=== PATIENT | female | born 1955 | race Caucasian/White ===

== ENCOUNTER → 2023-07-27 08:28 | Outpatient (REF) | payer MEDICARE, OTHER, SELFPAY | LOC: WDC 08:28 | PROVIDERS: ATTENDING PHYSICIAN Internal Medicine | DX: N64.4 Mastodynia (principal) | CPT/HCPCS: 77062; 77066 ==

== ENCOUNTER → 2024-09-17 06:30 | Outpatient (REF) | payer MEDICARE, OTHER, SELFPAY | LOC: RCS 06:30 | PROVIDERS: ATTENDING PHYSICIAN Internal Medicine Cardiovascular Disease; FAMILY PHYSICIAN Internal Medicine | DX: R06.09 Other forms of dyspnea (principal); I10 Essential (primary) hypertension | CPT/HCPCS: 93306 ==

== ENCOUNTER → 2024-09-19 06:30 | Outpatient (REF) | payer MEDICARE, OTHER, SELFPAY | LOC: RCS 06:30 | PROVIDERS: ATTENDING PHYSICIAN Internal Medicine Cardiovascular Disease; FAMILY PHYSICIAN Internal Medicine | DX: R06.09 Other forms of dyspnea (principal); I10 Essential (primary) hypertension | CPT/HCPCS: 78452; 93017; A9500 ==

== ENCOUNTER 2024-10-12 10:29 | Emergency (ER) | payer MEDICARE, OTHER, SELFPAY ==
[2024-10-12 10:52] VITALS: BP 191/113
[2024-10-12 11:14] LABS: % Eosinophils 3.8 % (0-6); % Immature Granulocytes 0.3 % (0-0.5); % Lymphocytes 39.9 % (20.5-51.1); % Monocytes 9.8 % (1.7-9.3); % Neutrophils 45.2 % (42.2-75.2); Absolute Basophils 0.1 10^3/uL (0-0.2); Absolute Eosinophils 0.2 10^3/uL (0-0.7); Absolute Lymphocytes 2.3 10^3/uL (1.2-3.4); Absolute Monocytes 0.6 10^3/uL (0.1-0.6); Absolute Neutrophils 2.6 10^3/uL (1.4-6.5); Hematocrit 41.7 % (37.0-47.0); Hemoglobin 14.9 g/dL (12.0-16.0); Mean Corp Hgb Conc. 35.7 g/dL (33.0-37.0); Mean Corpuscular Hgb 29.2 pg (27.0-31.0); Mean Corpuscular Volume 81.6 fL (81.0-99.0); Mean Platelet Volume 10.2 fL (7.4-10.4); Nucleated Red Blood Cells % 0 %; Platelet Count 218 10^3/uL (130-400); Red Blood Cell Count 5.11 10^6/uL (4.20-5.40); Red Cell Dist. Width 12.2 % (11.5-14.5); White Blood Cell Count 5.8 10^3/uL (4.8-10.8)
[2024-10-12 11:28] LABS: ALT (SGPT) 42 U/L (0-35); AST (SGOT) 35 U/L (14-36); Albumin 4.3 g/dl (3.5-5.0); Alkaline Phosphatase 72 U/L (38-126); Blood Urea Nitrogen 16 mg/dl (7-17); Calcium 9.8 mg/dl (8.4-10.2); Carbon Dioxide 29 mmol/L (22-30); Chloride 105 mmol/L (98-107); Glucose 117 mg/dl (70-99); Lipase 205 U/L (23-300); Potassium 4.2 mmol/L (3.5-5.1); Sodium 140 mmol/L (135-145); Total Bilirubin 0.7 mg/dl (0.2-1.3); Total Protein 7.2 g/dl (6.3-8.2); eGFR > 60.00
[2024-10-12 12:12] VITALS: BMI 35.6
[2024-10-12 12:47] LABS: Urine Albumin Negative (Neg - Trace); Urine Bilirubin Negative (Negative); Urine Character Clear (Clear); Urine Color Yellow; Urine Glucose Negative (Negative); Urine Ketone Negative (Negative); Urine Leukocyte 1+ (Negative); Urine Nitrite Negative (Negative); Urine Occult Blood Negative (Negative); Urine Specific Gravity 1.005 (<1.030); Urine Urobilinogen Negative (Neg - 1+)
--- NOTE | 2024-10-12 12:47 | ED.GENMED ---
History of Present Illness
General
Chief Complaint: Abdominal Pain
Source: patient
Time Seen by Provider: 10/12/24 12:02
History of Present Illness
History of Present Illness:
69-year-old female with past medical history of hypertension, hyperlipidemia and GERD presenting to the emergency department after being sent by the [place] [facility] for evaluation of upper abdominal pain/right upper quadrant abdominal pain
since Monday. Patient describes the pain to be relatively constant, intermittently sharp but sometimes just a mild pressure, somewhat relieved after eating for about an hour or 2 and then symptoms resolving, also notes some improvement with her
omeprazole and ymvt-ebc-kwhyoby antacid. Patient states the symptoms are associated with a little bit of urinary frequency but states she is not sure if this is related to the diuretic she takes and some mild nausea but otherwise no other symptoms.
Patient does report that about a month ago she had a stress test performed by cardiology which was unremarkable. She states that she will often get elevated blood pressures going to medical providers due to some stressful hospitalizations that she
has had. Social history was noted for wine once a month but otherwise unremarkable.
Past History
Past History
ED Past Medical History: GERD, HTN and Hypercholesterolemia
ED Past Surgical History: Gynecological, Orthopedic, Tonsilectomy and Other
Social History
Tobacco: Non-smoker
Alcohol: Occasional
Drug: None
Personal:
Living: with family
Review of Systems
Review of Systems
All Other Systems: ROS reviewed and negative except as documented in HPI and ROS
Phy Exam
Physical Exam
Physical Exam:
GENERAL: Alert , in no apparent distress, BP 215/105 at time of my exam
EYE: clear conjunctiva b/l
HEAD: NCAT
ENT: o/p clr, mmm.
CARDIAC: Regular rate and rhythm, no murmur .
LUNGS: Clear breath sounds bilaterally, no acute respiratory distress, no wheezes/rales/rhonchi
ABDOMEN: Soft, Tenderness within the epigastrium , no r/g, no cvat, negative Moralez sign, no tenderness at McBurney's point
NEUROLOGICAL: Alert and oriented
SKIN: Warm and dry, skin intact.
MUSCULOSKELETAL: No edema, well perfused.
PSYCH: Normal and appropriate interaction.
Scores
Heart Failure Risk
Heart Failure Risk Score: Not Applicable
Heart Score for Chest Pain Patients
STEMI patient?: Not applicable
Withdrawal Assessment of Alcohol
Withdrawal Assessment Completed?: Not applicable
Course
Orders/Labs/Results
Orders:
Orders
10/12/24 10:59
Complete Blood Count/With Diff Urgent
Comprehensive Metabolic Panel Urgent
Lipase Urgent
10/12/24 12:03
Electrocardiogram (*1) Urgent
Reason for Study: Abdominal Pain
EKG- Treatment ONCE
10/12/24 12:13
Troponin I Urgent
10/12/24 12:19
Urinalysis Reflex To Culture Urgent
Date Specimen was Collected: 10/12/24
Time Specimen was Collected: 12:18
Urine Microscopic Reflex Cult Urgent
Urine Culture Urgent
BRANDEE Source: U
Specimen Description:
Date Specimen was Collected: 10/12/24
Time Specimen was Collected: 12:18
10/12/24 12:36
Mag Hydrox/Al Hydrox/Simeth [Maalox] 30 ml Phenobarb/Hyoscy/Atropine/Scop [] 10 ml Viscous Lidocaine 2% [Xylocaine Viscous Cup] 10 ml PO NOW
US Abdomen Complete/Upper Urgent
Comment:
Reason For Exam: upper abd pain/RUQ pain
10/12/24 12:50
Phenobarb/Hyoscy/Atropine/Scop [] 10 ml .ROUTE .STK-MED ONE
10/12/24 12:51
Mag Hydrox/Al Hydrox/Simeth [Maalox] 30 ml .ROUTE .STK-MED ONE
Viscous Lidocaine 2% [Xylocaine Viscous Cup] 15 ml .ROUTE .STK-MED ONE
Abnormal Lab Results
10/12/24 10/12/24
10:59 12:19
Monocytes % 9.8 H %
(1.7-9.3)
Glucose 117 H mg/dl
(70-99)
ALT 42 H U/L
(0-35)
Leukocyte Esterase Rfl 1+ A
(Negative)
Urine Bacteria (Reflex) Few A
(Negative)
10/12/24 10:59
10/12/24 10:59
Vital Signs
Initial and Last Documented VS:
Initial Vital Signs
Temp Pulse Resp BP Pulse Ox
98.5 F 73 16 191/113 98
10/12/24 10:52 10/12/24 10:52 10/12/24 10:52 10/12/24 10:52 10/12/24 10:52
Last Documented Vital Signs
Temp Pulse Resp BP Pulse Ox
98.5 F 72 17 161/80 94
10/12/24 10:52 10/12/24 14:17 10/12/24 14:17 10/12/24 14:17 10/12/24 13:30
MDM/Problems Addressed
Differential Diagnosis Includes:
GERD, gastritis, duodenitis, peptic ulcer disease, biliary colic, pancreatitis, renal/ureteral colic, hypertensive urgency, less concern for urinary tract infection, less concern for atypical ACS presentation given patient did recently just have a
stress test which was reportedly unremarkable
MDM/Problems Addressed:
69-year-old female presenting to the ER for evaluation of upper abdominal pain since Monday, pain is somewhat relieved with food which would go against a biliary colic diagnosis potentially more likely part of a gastritis/duodenitis. Her
significant hypertension is noted, states that this is common for her whenever going to a hospital and that she was at her primary care provider earlier in the month and her blood pressure was normal at that time. Labs were ordered on arrival which
showed no leukocytosis and otherwise reassuring liver function test. Due to her elevated blood pressure I did add on an EKG and troponin to help rule out an atypical ACS presentation. Ultrasound of the abdomen ordered. Will treat symptoms with a
GI cocktail. Reassessment following
Chronic conditions affecting care: HTN
Acute Exacerbation and/or Progression of Chronic Illness: HTN
*Radiology
Radiology exam reviewed: radiology read reviewed
*Pulse Oximetry
Patient hypoxic: no
*EKG
Heart Rate: 75
Rate: normal
Rhythm: sinus
Ischemia: non-specific ST changes
*Chemical Worker Interpretation
Rate: normal
Rhythm: sinus
*Critical Care Note
Total Time (30-74mins, 75-104mins- exclusive of procedures): Not Applicable
Data Reviewed
Review of Other/Old Records Reveals: Records and Testing
Source: patient, records and spouse
Patient Management
Social determinants of health affecting care: Living situation and Strong social support
Escalation/DeEscalation of care consider admission/obs:
Patient's ultrasound shows hepatic steatosis but no cholelithiasis.. Patient's symptoms moderately improved with GI cocktail. Patient requesting to be discharged home. She already has an established GI provider and will contact them on Monday for
follow-up. Prescription for Carafate sent to patient's pharmacy. Stable for discharge home and aware of return precautions.
ED Attending Note
-
Portions of this chart may have been created with voice recognition software.� Occasional wrong word or��sound alike� substitutions may have occurred due to the inherent limitations of voice recognition software.
Discharge Plan
Departure
Patient Disposition: Home (Routine Discharge)
Date of Disposition: 10/12/24
Time of Disposition: 15:35
Patient with high blood pressure during this ER visit?: Yes
Discharge Problem:
Abdominal pain
Instructions: Abdominal Pain
Prescriptions:
New
sucralfate [Carafate] 100 mg/mL suspension
10 ml PO Q6H Qty: 1000 0RF
Referrals:
Amenta,Millicent L., DO [Family Provider, Internal Medicine]
Interventions
Interventions:
*Risk Screen - Suicide Last Done: 10/12/24 10:52
*General Assessment Last Done: 10/12/24 10:52
*Neglect/Abuse Screening Last Done: 10/12/24 10:52
*ED- Fall Risk Assessment Last Done: 10/12/24 10:52
*ED COVID-19 Vaccine History Last Done: 10/12/24 10:52
*Nursing Disposition Last Done: 10/12/24 16:06
IL-Jfijya-Yngqkborym Assessment Last Done: 10/12/24 11:30
Discharge Date and Time
Discharge Date/Time: 10/12/24 15:49
Print Language: MAORI
[2024-10-12] MEDS: MAALOX 50 PO (12:51)
[2024-10-12 12:54] LABS: Urine Bacteria Few (Negative); Urine Red Blood Cell 0-2 /HPF (0-2)
[2024-10-12 12:56] LABS: Troponin I < 0.012 ng/ml
[2024-10-12 14:17] VITALS: BP 161/80
== END 2024-10-12 15:49 | disposition home or self-care (01) ==
LOC: EMR 10:29
PROVIDERS: Physician Assistant Medical; EMERGENCY PHYSICIAN Emergency Medicine; FAMILY PHYSICIAN Internal Medicine
DX: R10.11 Right upper quadrant pain (principal); E78.00 Pure hypercholesterolemia, unspecified; I10 Essential (primary) hypertension
CPT/HCPCS: 99284; 76700; 80053; 81003; 81015; 83690; 84484; 85025; 87086; 93005

== ENCOUNTER 2024-11-13 09:26 | Emergency (ER) | payer MEDICARE, OTHER, SELFPAY ==
[2024-11-13 09:26] VITALS: BMI 34.5
[2024-11-13 09:35] VITALS: BP 172/85
--- NOTE | 2024-11-13 12:08 | ED.GENMED ---
History of Present Illness
General
Chief Complaint: Back Pain
Source: patient
Time Seen by Provider: 11/13/24 11:06
History of Present Illness
History of Present Illness:
69-year-old female with past medical history of hypertension, hyperlipidemia and GERD presenting to the emergency department for back pain that has been ongoing for the last few weeks, initially seen at [facility] where she had an x-ray
done which showed degenerative changes but due to's sharp severe pain while getting up off of the x-ray table was having a hard time obtaining CT scan. Patient was told that if she cannot complete the CT scan as an outpatient that the emergency
department could do something different for her which is why she presented to the ER today. Patient states the only time she has this sharp and severe pain is when she is laying flat and going to get up off the bed. She states that laying flat is
not the issue she is just very afraid of getting up and having that recurring sharp back pain again. She denies any fevers, bowel or urinary incontinence, saddle anesthesia, focal weakness or numbness, traumatic injuries. Patient did complete a
steroid taper with the orthopedist. She did not take anything for her pain today.
Past History
Past History
ED Past Medical History: GERD, HTN and Hypercholesterolemia
ED Past Surgical History: Gynecological, Orthopedic, Tonsilectomy and Other
Social History
Tobacco: Non-smoker
Alcohol: Occasional
Drug: None
Personal:
Living: with family
Review of Systems
Review of Systems
All Other Systems: ROS reviewed and negative except as documented in HPI and ROS
Phy Exam
Physical Exam
Physical Exam:
GENERAL: Alert , in no apparent distress but very anxious
EYE: conjunctiva clear
Head: Normocephalic atraumatic
NECK: Supple,
ENT: mmm.
LUNGS: no acute respiratory distress
NEUROLOGICAL: Alert and oriented, ambulatory, no focal neurologic deficits
SKIN: Warm and dry, skin intact.
MUSCULOSKELETAL: well perfused.
PSYCH: Normal and appropriate interaction.
Scores
Heart Failure Risk
Heart Failure Risk Score: Not Applicable
Heart Score for Chest Pain Patients
STEMI patient?: Not applicable
Withdrawal Assessment of Alcohol
Withdrawal Assessment Completed?: Not applicable
Course
Orders/Labs/Results
Orders:
Orders
11/13/24 12:33
CT Lumbar Spine W/o Iv Contras Urgent
Comment:
Reason For Exam: worsening lower back pain, sent by ortho
HYDROmorphone [Dilaudid] 0.5 mg IM NOW STA
Vital Signs
Initial and Last Documented VS:
Initial Vital Signs
Temp Pulse Resp BP Pulse Ox
98.7 F 75 20 172/85 96
11/13/24 09:35 11/13/24 09:35 11/13/24 09:35 11/13/24 09:35 11/13/24 09:35
Last Documented Vital Signs
Temp Pulse Resp BP Pulse Ox
98.7 F 74 18 164/99 99
11/13/24 09:35 11/13/24 14:20 11/13/24 14:20 11/13/24 14:20 11/13/24 14:20
MDM/Problems Addressed
Differential Diagnosis Includes:
Spinal stenosis
Disc herniation
Nerve impingement
No symptoms to suggest infectious etiology
No current symptoms to suggest cauda equina or neurogenic claudication
No urinary symptoms to suggest infectious etiology or renal/ureteral colic
MDM/Problems Addressed:
69-year-old female presenting to the ER for evaluation of lower back pain that has been present for the last few weeks, worse when attempting to get up after laying flat. Had x-ray showing degenerative changes throughout the lumbar spine,
orthopedist wished to obtain CT scan to rule out occult fracture. At this time patient is very hesitant to obtain imaging for fear of pain. I did offer her the CT scan and for her to give her pain medication here prior to the scan being done to
try and keep her as comfortable as possible. Patient unsure. Will come back into the room to further evaluate and determine if patient would like to proceed with imaging or just continue following up on an outpatient basis.
*Radiology
Radiology exam reviewed: radiology read reviewed
*Pulse Oximetry
SaO2: 96
Oxygen Mode of Delivery: Room air
Patient hypoxic: no
*Critical Care Note
Total Time (30-74mins, 75-104mins- exclusive of procedures): Not Applicable
Patient Management
Escalation/DeEscalation of care consider admission/obs:
CT scan shows a compression fracture of the T12 vertebral body. Other chronic findings noted. Patient was provided with a printout of CT scan report. Patient requesting information for orthopedics and pain management, unsure if she wants to go
back to [facility]. Information was provided for this. Patient is otherwise stable for discharge. Advised on return precautions
ED Attending Note
-
Portions of this chart may have been created with voice recognition software.� Occasional wrong word or��sound alike� substitutions may have occurred due to the inherent limitations of voice recognition software.
Discharge Plan
Departure
Patient Disposition: Home (Routine Discharge)
Date of Disposition: 11/13/24
Time of Disposition: 13:43
Patient with high blood pressure during this ER visit?: Yes
Discharge Problem:
T12 compression fracture, Lumbar spinal stenosis
Instructions: Vertebral compression fracture
Prescriptions:
No Action
sucralfate [Carafate] 100 mg/mL suspension
10 ml PO Q6H Qty: 1000 0RF
Referrals:
Millicent Luis DO [Family Provider, Internal Medicine]
Alin Orellana MD [Active, Anesthesiology]
Referral Note: Pain Management
Jaquan Nettles MD [Active, Orthopedics]
Referral Note: Call for appointment
Interventions
Interventions:
*Risk Screen - Suicide Last Done: 11/13/24 09:35
*General Assessment Last Done: 11/13/24 09:35
*Neglect/Abuse Screening Last Done: 11/13/24 09:35
*ED- Fall Risk Assessment Last Done: 11/13/24 11:10
*Nursing Disposition Last Done: 11/13/24 14:20
ED-Musculoskeletal Assessment Last Done: 11/13/24 11:10
Discharge Date and Time
Discharge Date/Time: 11/13/24 14:26
Print Language: NEPALI
[2024-11-13] MEDS: DILAUDID 0.5 MG IM (12:44)
[2024-11-13 14:20] VITALS: BP 164/99
== END 2024-11-13 14:26 | disposition home or self-care (01) ==
LOC: EMR 09:26
PROVIDERS: EMERGENCY PHYSICIAN Student in an Organized Health Care Education/Training Program; FAMILY PHYSICIAN Internal Medicine
DX: M48.061 Spinal stenosis, lumbar region without neurogenic claudication (principal); M48.54XA Collapsed vertebra, not elsewhere classified, thoracic region, initial encounter for fracture; I10 Essential (primary) hypertension; E78.00 Pure hypercholesterolemia, unspecified; K21.9 Gastro-esophageal reflux disease without esophagitis
CPT/HCPCS: 99284; 96372; 72131

== ENCOUNTER 2025-02-24 10:16 | Day surgery (SDC) | payer MEDICARE, OTHER, SELFPAY ==
[2025-02-24] VITALS (14 sets, daily range): BP systolic 135–197; BP diastolic 84–97; BMI 35.5
[2025-02-24] MEDS: LOW STRENGTH ASPIRIN 324 MG PO (12:17)
[2025-02-24] MEDS: LASIX 20 MG IV (14:06)
--- NOTE | 2025-02-24 17:07 | ITS.CL.CATH ---
Saw Straightener - Catheterization
Cardiac Catheterization
Procedure Report:
LEFT HEART CATHETERIZATION
Date of Procedure: February 24, 2025
Referring: Israel Steward
PROCEDURES:
1. Left heart catheterization, coronary angiogram.
2. Moderate sedation.
INDICATION: Progressive dyspnea on exertion with significantly elevated coronary calcium score
ACCESS: Right radial artery, 6Fr. sheath, under US guidance.
HEMODYNAMICS : (mmHg)
AO (s/d) : 138/75
LVEDP : 23
No significant gradient across the aortic valve to suggest aortic stenosis.
CORONARY FINDINGS
Dominance: Right
Left Main Trunk (LMT): Large caliber vessel that gives rise to the LAD and LCx branches and is free of angiographic disease.
Left Anterior Descending Artery (LAD): Large caliber vessel that gives off 3 small caliber major diagonal branches as it courses along the anterior inter-ventricular groove before wrapping around the cardiac apex. There mid LAD starting at the
level of D3 has long area of diffuse up to 75% stenosis. Distal to apical LAD has diffuse up to 90% stenosis. [id number] collaterals are noted. The diagonal branches are small caliber with D2 and D3 with 40- 50 to 60% ostial stenosis. D3 also
has a proximal 70% stenosis.
Left Circumflex Artery (LCx): Large caliber vessel that gives off 2 major obtuse marginal (OM) branches as it courses along the atrio-ventricular (AV) groove. OM 1 is a medium caliber vessel with long area of diffuse 70% stenosis. OM 2 is a
medium caliber vessel with a long area of 60 to 70% stenosis.
Right Coronary Artery (RCA): Large caliber dominant vessel that gives rise to the posterior descending artery (RPDA) and postero-lateral ventricular (RPLV) branches distally. Mid RCA has 100% chronic total occlusion with robust [id number]
collaterals.
SEDATION: 27 minutes of procedural sedation was utilized. IV Midazolam and IV Fentanyl were administered. An independent medical certification specialist was present to assist with and help manage the patient's level of consciousness and physiologic status.
RADIATION SUMMARY: Fluoro Time (min): 4.2 Dose (mGy): 503.2, DAP (Gy.cm2) : 30.6
Closure Device: There were no immediate intra-procedural complications. The sheath was pulled in the manager lab and a vascular-band applied to the right wrist for radial artery hemostasis using the patent hemostasis technique.
CONCLUSIONS
1. Significant multivessel coronary artery disease.
2. LVEDP elevated at 23 mmHg
RECOMMENDATIONS
1. Wean radial band per protocol. Monitor right hand perfusion and for bleeding from the radial site following removal of the vascular-band following trans-radial access.
2. Continue aggressive medical therapy and risk factor modification for secondary CAD prevention.
3. Hydrate with normal saline to mitigate the risk of contrast-induced acute kidney injury.
4. CT surgery consult to pursue a heart team approach to discuss optimal management of multivessel coronary artery disease including options of medical therapy only versus PCI versus coronary artery bypass grafting however I am concerned about LAD
target.
Shania Gentile MD, FACC, [facility]
Copy to: Israel Steward
== END 2025-02-24 16:05 | disposition home or self-care (01) ==
LOC: CATH 10:16
PROVIDERS: ATTENDING PHYSICIAN Internal Medicine Interventional Cardiology; FAMILY PHYSICIAN Internal Medicine; OTHER PHYSICIAN Internal Medicine Cardiovascular Disease
DX: I25.10 Atherosclerotic heart disease of native coronary artery without angina pectoris (principal); R06.09 Other forms of dyspnea; Z79.899 Other long term (current) drug therapy; I10 Essential (primary) hypertension
CPT/HCPCS: 99152; 99153; 93458; C1769; C1894; Q9967

== ENCOUNTER 2025-03-10 04:48 | Inpatient (IN) | payer MEDICARE, OTHER, SELFPAY ==
[2025-03-05 08:30] VITALS: BMI 34.7
[2025-03-05 08:56] LABS: Hematocrit 42.9 % (37.0-47.0); Hemoglobin 14.3 g/dL (12.0-16.0); Mean Corp Hgb Conc. 33.3 g/dL (33.0-37.0); Mean Corpuscular Volume 84.1 fL (81.0-99.0); Nucleated Red Blood Cells % 0 %; Platelet Count 234 10^3/uL (130-400); Red Cell Dist. Width 12.4 % (11.5-14.5)
[2025-03-05 09:03] LABS: INR 0.95; PT 13.2 Sec (11.4-14.6)
[2025-03-05 09:17] LABS: Urine Character Clear (Clear)
[2025-03-05 09:23] LABS: ALT (SGPT) 31 U/L (0-35); AST (SGOT) 23 U/L (14-36); Albumin 4.4 g/dl (3.5-5.0); Alkaline Phosphatase 66 U/L (38-126); Blood Urea Nitrogen 17 mg/dl (7-17); Calcium 9.6 mg/dl (8.4-10.2); Carbon Dioxide 30 mmol/L (22-30); Chloride 100 mmol/L (98-107); Estimated Creatinine Clearance 88 ml/min; Glucose 117 mg/dl (70-99); Potassium 4.2 mmol/L (3.5-5.1); Sodium 137 mmol/L (135-145); Total Protein 7.1 g/dl (6.3-8.2); eGFR > 60.00
[2025-03-05 09:31] LABS: Urine Squamous Cell >30 /LPF (Few)
[2025-03-05 09:32] LABS: Urine Red Blood Cell 0-2 /HPF (0-2)
[2025-03-05 09:33] LABS: Urine White Cell 26-30 /HPF (0-5)
[2025-03-05 09:52] LABS: Glycohemoglobin (HgbA1c) 5.9 % (4.0-5.9)
--- NOTE | 2025-03-05 12:45 | CM ---
spoke to pt in PAT's we disucssed preop CABG teaching including sternal and driving restrictions. she is prev indep, does state she has bad juli pain d/t healing compression fx. she lives with her husb in a 2 story home with 3 steps to enter. she
denies any dme's. she has the cardiac surgery educ book, soap and instructions. she is agreeable toa f/u visit fro the ct transitional care nurse after dc. plan isf or cabg 03/10, cm role explained and michelle questions answered.
[2025-03-09 06:00] VITALS: BMI 33.9
[2025-03-10] VITALS (11 sets, daily range): BP systolic 84–183; BP diastolic 56–112; PULSE 2–83; BMI 33.9
[2025-03-10] MEDS: PROTONIX 40 MG PO (05:40)
[2025-03-10] MEDS: MAGNESIUM OXIDE 400 MG PO (05:41)
[2025-03-10] MEDS: LOPRESSOR 25 MG PO (05:41)
[2025-03-10] MEDS: BACTROBAN 2% OINTMENT 1 APPLIC NASAL ×2 (05:45→20:08)
--- NOTE | 2025-03-10 05:53 | PTCARENOTE ---
patient arrived for SDA CABG, Alert and oriented, patient clipped and changed for surgery new linens and gown. Patient stated they have an allergy to prep wash Chlorhexidine and Betadine and wipes and was told to wash with normal soap and water by
surgeons office. No prep wipes used this morning. Patient had back pain at base line and need assistance moving in and out of bed. Preop medications and ABO screening sent. oriented to unit. admission questions and med rec completed. NPO since
1999 night prior to arrival.
--- NOTE | 2025-03-10 06:36 | W.CVOR.SURPR ---
CVOR Surgeon Immed Pre Op
-
I have examined this patient prior to performance of the scheduled procedure.
The patient's condition is unchanged from the time of the dictated/written History and
Physical and the patient is able to undergo the scheduled procedure.
Note- patient has reaction to both Betadine and Chlorhexidine. Reaction with previous use of each.
[2025-03-10 07:47] LABS: Urine Character Clear (Clear)
[2025-03-10 07:55] LABS: ACT+ - POC 112 Seconds (82-134)
[2025-03-10 07:57] LABS: Urine Squamous Cell >30 /LPF (Few)
[2025-03-10 09:47] LABS: ACT+ - POC 891 Seconds (82-134)
[2025-03-10 10:05] LABS: B.E. - POC 2.0 mmol/L; Glucose - POC 131 mg/dl (70-99); HCO3 - POC 26 mmol/L (21-28); Hematocrit - POC 39 % PCV (37-47); Hemodilution- POC No; Hemoglobin Calculated - POC 13.1; Ionized Calcium - POC 1.20 mmol/L (1.15-1.33); Lactate - POC 1.21 mmol/L (0.36-0.75); O2 Saturation %Calculated-POC 99.6 % (94-98); PCO2 - POC 39 mmHg (35-48); PO2 - POC 166 mmHg (83-108); Potassium - POC 3.7 mmol/L (3.5-5.1); Sodium - POC 137 mmol/L (136-145); Specimen Type - POC Arterial; pH - POC 7.44 (7.35-7.45)
[2025-03-10 10:16] LABS: ACT+ - POC 599 Seconds (82-134)
[2025-03-10 10:33] LABS: B.E. - POC 6.0 mmol/L; Glucose - POC 151 mg/dl (70-99); HCO3 - POC 30 mmol/L (21-28); Hematocrit - POC 26 % PCV (37-47); Hemodilution- POC Yes; Hemoglobin Calculated - POC 8.8; Ionized Calcium - POC 0.98 mmol/L (1.15-1.33); Lactate - POC 1.55 mmol/L (0.36-0.75); O2 Saturation %Calculated-POC 100.0 % (94-98); PCO2 - POC 38 mmHg (35-48); PO2 - POC 485 mmHg (83-108); Potassium - POC 4.6 mmol/L (3.5-5.1); Sodium - POC 136 mmol/L (136-145); Specimen Type - POC Arterial; pH - POC 7.50 (7.35-7.45)
[2025-03-10 10:42] LABS: ACT+ - POC 513 Seconds (82-134)
[2025-03-10 11:00] LABS: B.E. - POC 3.8 mmol/L; Glucose - POC 153 mg/dl (70-99); HCO3 - POC 27 mmol/L (21-28); Hematocrit - POC 27 % PCV (37-47); Hemodilution- POC Yes; Hemoglobin Calculated - POC 9.3; Ionized Calcium - POC 1.05 mmol/L (1.15-1.33); Lactate - POC 1.93 mmol/L (0.36-0.75); O2 Saturation %Calculated-POC 99.8 % (94-98); PCO2 - POC 37 mmHg (35-48); PO2 - POC 223 mmHg (83-108); Potassium - POC 4.4 mmol/L (3.5-5.1); Sodium - POC 137 mmol/L (136-145); Specimen Type - POC Arterial; pH - POC 7.48 (7.35-7.45)
--- NOTE | 2025-03-10 11:04 | CM ---
pt in OR today, cm following
[2025-03-10 11:08] LABS: ACT+ - POC 479 Seconds (82-134)
[2025-03-10 11:24] LABS: B.E. - POC 2.4 mmol/L; Glucose - POC 152 mg/dl (70-99); HCO3 - POC 27 mmol/L (21-28); Hematocrit - POC 29 % PCV (37-47); Hemodilution- POC Yes; Hemoglobin Calculated - POC 10.0; Ionized Calcium - POC 1.06 mmol/L (1.15-1.33); Lactate - POC 2.18 mmol/L (0.36-0.75); O2 Saturation %Calculated-POC 99.8 % (94-98); PCO2 - POC 42 mmHg (35-48); PO2 - POC 223 mmHg (83-108); Potassium - POC 4.3 mmol/L (3.5-5.1); Sodium - POC 136 mmol/L (136-145); Specimen Type - POC Arterial; pH - POC 7.42 (7.35-7.45)
[2025-03-10 11:36] LABS: ACT+ - POC 623 Seconds (82-134)
[2025-03-10 11:51] LABS: B.E. - POC 2.9 mmol/L; Glucose - POC 158 mg/dl (70-99); HCO3 - POC 28 mmol/L (21-28); Hematocrit - POC 31 % PCV (37-47); Hemodilution- POC Yes; Hemoglobin Calculated - POC 10.4; Ionized Calcium - POC 1.10 mmol/L (1.15-1.33); Lactate - POC 2.36 mmol/L (0.36-0.75); O2 Saturation %Calculated-POC 99.8 % (94-98); PCO2 - POC 42 mmHg (35-48); PO2 - POC 221 mmHg (83-108); Potassium - POC 4.0 mmol/L (3.5-5.1); Sodium - POC 140 mmol/L (136-145); Specimen Type - POC Arterial; pH - POC 7.43 (7.35-7.45)
[2025-03-10 12:02] LABS: ACT+ - POC 549 Seconds (82-134)
[2025-03-10 12:39] LABS: B.E. - POC 1.5 mmol/L; Glucose - POC 158 mg/dl (70-99); HCO3 - POC 27 mmol/L (21-28); Hematocrit - POC 30 % PCV (37-47); Hemodilution- POC Yes; Hemoglobin Calculated - POC 10.2; Ionized Calcium - POC 1.08 mmol/L (1.15-1.33); Lactate - POC 2.98 mmol/L (0.36-0.75); O2 Saturation %Calculated-POC 99.9 % (94-98); PCO2 - POC 45 mmHg (35-48); PO2 - POC 268 mmHg (83-108); Potassium - POC 4.1 mmol/L (3.5-5.1); Sodium - POC 140 mmol/L (136-145); Specimen Type - POC Arterial; pH - POC 7.38 (7.35-7.45)
[2025-03-10 12:44] LABS: ACT+ - POC 137 Seconds (82-134)
[2025-03-10 14:07] LABS: Glucose - Point of Care 152 mg/dl (70-99)
--- NOTE | 2025-03-10 14:11 | W.PN.CT.SURG ---
CT Surgery Operative Note
-
CARDIAC SURGERY OPERATIVE REPORT
Preoperative Diagnosis: Multivessel Coronary Artery Disease with symptoms
Postoperative Diagnosis: Same
Procedure(s) Performed:
1. Standard Sternotomy with Aortic and Right Atrial Cannulation
2. Internal Mammary Artery Harvesting, Left
3. Coronary artery bypass grafting x 4 (In situ BOWER to LAD, Ao to RSVG to distal RCA, Ao to RSVG to OM1, vein putnam to RSVG to D2)
4. Endoscopic vein harvesting of R saphenous vein
5. Transesophageal echocardiography
6. Placement of Temporary Ventricular Pacing Wires
7. Left atrial appendage ligation with 40 mm AtriClip device
Date of Surgery: 03/10/2025
Comorbidities:
1. Hypertension
2. Fibromyalgia
Attending Surgeon: Elsy Smart MD, MPH
Assistants: Helen Billings PA-C (present and necessary to medical claims assistant, endoscopic vein harvest, retraction, suction, exposure, suture management, and wound closure under my direction)
Anesthesiology: Michael Morris MD and Riya Sloan CRNA
Scrub and Circulating RNs: Ethel Otoole RN, Martha Salazar RN
Field Pipelines Supervisor: Nahum Maxwell CCP
Anesthesia: GETA
EBL: per perfusion records
Products: None
CPB Time: 150 minutes
Aortic Cross Clamp Time: 112 minutes
Indication(s) for Procedures: 69-year-old female with coronary artery disease, significant in all of her vessels and ongoing worsening symptoms of shortness of breath and fatigue.
Conduit(s) Quality:
BOWER -excellent caliber and size with great flow
RSVG -acceptable quality lumen size is fairly small but was free of sclerosis or varicosities
Target(s) Quality:
RCA -I was able to find what looked like PDA but was very small and diminutive, there was also an acute marginal that was decent in size but I opted to look for the distal RCA beyond the JET MAN which I did find. The artery was thickened but where I
was able to open it free of disease and easy to probe with a 1 mm probe. Flow with cardioplegia was 15 cc at 80 mmHg.
OM1 -I was able to see the distal OM 2 fairly small and very intramyocardial, I then also found OM1 which was also intramyocardial but substantially larger so I opted to open OM1. This was excellent lumen and easily probed with a 1.5 mm probe.
Flow with cardioplegia was 30 cc at 80 mmHg.
D2 -I can see various diagonal branches coming off of the LAD and shows the largest one which was D2. This vessel was also of good size and easily probed with a 1 mm probe.
LAD -hidden within the epicardial fat but could feel calcifications. I did find soft area in the distal LAD that we easily opened and found a good lumen that also probed with a 1 mm probe.
Findings: Preop CARLOS with normal function no significant regional wall motion abnormalities and mild MR, postop function at baseline without any new regional wall motion abnormalities. Patient stable on small amount of levo and normal sinus rhythm
without pacing. The BOWER was harvested in a skeletonized fashion. Following bypass grafting, test dose cardioplegia was given down each distal and confirmed patency and hemostasis. Each distal was probed both proximally and distally to confirm
disease and patency, respectively.
Description of Procedure: The patient was taken to the operating room. Their identity and procedure to be performed were verified and they were positioned supine on the operating table. Induction via general anesthesia with endotracheal intubation
was performed and central venous access and arterial monitoring were inserted. A preoperative transesophageal echocardiogram was performed to assess cardiac function and valvular function. The patient was then prepped and draped from chin to feet in
a sterile fashion. A preoperative time-out was performed with all members of the team present. A midline chest incision was performed along with median sternotomy. Simultaneous endoscopic access of the right lower extremity for saphenous vein
harvest was obtained along with administration of an initial 5,000 units of IV heparin. A RulTract sternal retractor was positioned to exposure the left internal mammary bed. The mammary was harvested and found to have good flow. A bulldog clamp was
applied to the distal end of the mammary after dividing it. It was wrapped in a papaverine soaked RayTec and replaced back into the left hemithorax. The RulTract was exchanged for a median sternal retractor. The innominate vein was isolated. Full
heparinization was given (a total of 45,000 units). We created a pericardial well. The aortic cannulation site was chosen where it was soft, pliable, and free of calcium. Cannulation was performed with an arterial cannula in the ascending aorta and
a triple-stage venous cannula through the right atrial appendage. The arterial cannula line had an appropriate bounce and correlating pressures with test dosing. Next, a root vent/antegrade cannula was inserted into the ascending aorta. The ACT was
confirmed to be over 400 and retrograde autologous priming was performed before commencing cardiopulmonary bypass. The pulmonary artery was away from the aorta to facilitate a clamp site. The aortic cross-clamp was placed after decreasing
the flow on the bypass and mean arterial pressure. A total of 1.2L initial dose of antegrade Del-Nido cardioplegia solution was given and planned for re-dosing every 75 minutes as necessary. There was rapid electro-mechanical arrest of the heart at
400 cc of cardioplegia. The left ventricle was observed for distention on echocardiogram and manual palpation. Cold slush was placed into a sponge and topically on the RV while we systemically cooled to 34 degrees centigrade.
First I position the heart to expose the left atrial appendage visually measured and chose a 40 mm atriclip device which we deployed at the base of our appendage to completely occlude. I positioned the heart to expose the distal right coronary. A
[place] blade was used to expose the coronary and perform the arteriotomy. Coronary Mcdonough scissors were used to enlarge the incision. The saphenous vein was trimmed and beveled to an appropriate size. The distal anastomosis was performed using 7-0
prolene in an end-to-side fashion. Antegrade cardioplegia was administered into the graft. Appropriate hemostasis and flow were confirmed. The graft was measured for length to the aorta and cut. A suitable site on the first obtuse marginal was
chosen. We dissected and prepared the distal target in a similar fashion. An end-to-side anastomosis was created with a 7-0 prolene. Antegrade cardioplegia was administered into the graft. Appropriate hemostasis and flow were confirmed. The graft
was measured for length to the aorta and cut. A suitable site on the second diagonal was chosen. We dissected and prepared the distal target in a similar fashion. An end-to-side anastomosis was created with a 7-0 prolene. Antegrade cardioplegia was
administered into the graft. Appropriate hemostasis and flow were confirmed. The graft was measured for length to the aorta which were just short of so we planned on anastomosing to the head of our saphenous vein graft to OM. A suitable target on
the distal left anterior descending was identified. We dissected and prepared the distal target in a similar fashion. We retrieved the BOWER from the chest and created a pericardial opening while being cognizant of the phrenic nerve to facilitate the
course of the mammary. The distal end of the mammary was prepped and beveled to size. We verified orientation and length of the JENN and found brisk flow. An end-to-side anastomosis was created with a 7-0 prolene. We temporarily released the bulldog
clamp on the mammary to inspect flow. Perfusion to the LAD territory was visualized and hemostasis was confirmed. The bull clamp was replaced on the mammary. The heart was filled and the root was distended with antegrade cardioplegia to make final
assessment of graft length and orientation. We created 2 aortotomies using a #11 blade then a 4.0mm aortic punch. The proximal anastomoses were created in an end-to-side fashion using 6-0 prolene. At the the same time, we re-warmed to 36.5 degrees
centigrade. The bulldog clamp was removed from the mammary. Temporary bipolar ventricular pacing wires were placed on the base of the right ventricle. The patient was placed in a Trendelenburg position and flows on bypass were lowered. The aortic
cross clamp was removed and flows were slowly brought back up. 2 bulldog clamps were placed on the saphenous vein graft to the OM in a place that our diagonal branch could easily reach. We opened this using an 11 blade and performed an end-to-side
anastomosis on the vein had. The bulldogs were released and we inspected for hemostasis. All bypass grafts were inspected and were free from kinking or twisting. The distal and proximal anastomoses appeared hemostatic. Once transesophageal
echocardiography appeared satisfactory for de-airing, the flows were temporarily lowered for root vent removal. After verifying acceptable parameters, we initiated weaning from cardiopulmonary bypass. Once we were off cardiopulmonary bypass, the
venous cannula was clamped and removed. A test dose of protamine was administered and the patient was monitored for any adverse reaction before resuming protamine. Once half of the protamine dose was delivered, pump suckers were turned off and the
systolic blood pressure was lowered for aortic decannulation. The aortic cannula was removed and pursestrings were tied down. All cannulation sites were oversewn with a 4-0 prolene. The mammary bed was inspected and hemostasis was confirmed. Once
the mediastinum was hemostatic, 19Fr Marc drains were placed in the left and right pleural cavities and two 24Fr Marc drains were placed within the pericardium. The sternum was approximated with 8 #7 single stainless steel wires. Fascia was
approximated with #1 vicryl suture. The subcutaneous, dermis and epidermis were closed in layers in a running fashion. The skin wound was cleansed and dressed.
All instrument, sponge, and needle counts were confirmed to be correct x 2 at the end of the operation. The patient was transferred to the cardiac intensive care unit in critical but stable condition.
I, Dr. Elsy Smart, was present, scrubbed for, and performed all critical elements of this procedure.
Elsy Smart MD, MPH
Cardiothoracic Surgeon
[facility] [address]
This operative dictation was created using the Mapp dictation system. Please excuse any grammatical, typographical, or 'sound alike' errors
[2025-03-10 14:18] LABS: B.E. -2.2 mmol/L; HCO3 24.2 mmol/L (21-28); O2 Saturation % 98.9 % (94-98); PCO2 47 mmHg (32-35); PO2 93 mmHg (83-108); Potassium 4.0 mMOL/L (3.5-5.1); Sodium 136 mMOL/L (136-145)
[2025-03-10 14:20] LABS: Hematocrit 36.0 % (37.0-47.0); Hemoglobin 12.0 g/dL (12.0-16.0); Platelet Count 225 10^3/uL (130-400)
[2025-03-10 14:28] LABS: INR 1.38; PT 17.3 Sec (11.4-14.6)
[2025-03-10 14:29] LABS: APTT 29.4 Sec (23.4-35.0)
[2025-03-10 14:34] LABS: Blood Urea Nitrogen 17 mg/dl (7-17); Estimated Creatinine Clearance 102 ml/min; Glucose 145 mg/dl (70-99); Magnesium 3.1 mg/dl (1.6-2.3)
[2025-03-10] MEDS: CALCIUM GLUCONATE 100 IV (14:39)
[2025-03-10 14:46] LABS: B.E. - POC -2.5 mmol/L; Glucose - POC 165 mg/dl (70-99); HCO3 - POC 22 mmol/L (21-28); Hematocrit - POC 28 % PCV (37-47); Hemodilution- POC Yes; Hemoglobin Calculated - POC 9.5; Ionized Calcium - POC 1.28 mmol/L (1.15-1.33); Lactate - POC 2.88 mmol/L (0.36-0.75); O2 Saturation %Calculated-POC 99.8 % (94-98); PCO2 - POC 37 mmHg (35-48); PO2 - POC 244 mmHg (83-108); POC Comment POST; Potassium - POC 3.1 mmol/L (3.5-5.1); Sodium - POC 139 mmol/L (136-145); Specimen Type - POC Arterial; pH - POC 7.38 (7.35-7.45)
[2025-03-10] MEDS: NSS 500 IV (14:48)
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
[2025-03-10 15:25] LABS: Glucose - Point of Care 144 mg/dl (70-99)
--- NOTE | 2025-03-10 16:00 | PTCARENOTE ---
Patient received from [facility] at 1400; Sedated and intubated; NSR rhythm on monitor; VSS; Epicardial v wire present with settings 30/10; DP and radial pulses present; Lungs diminished at bases; ETT size 8 positioned and secured at 22 cm R lip;
Ventilator settings SIMV 12/500/5 FiO2 40%; CTx4 to -20 cm wall suction draining bloody drainage - no air leak, tidaling, or crepitus noted; Hypoactive BS; Gurrola catheter in place draining clear, yellow urine; Sternal incision w/ scant amount of
bloody drainage, groin puncture site glued, approximated CDI, L leg or arm wrapped in BARON wrap - CDI; L radial A-line in place, slick present in RIJ Cordis all lines zeroed and leveled; PIVx1; Levo, insulin, precedex, infusing - see nursing
flowsheets for further details; see nursing documentation for further details.
[2025-03-10 16:08] LABS: Glucose - Point of Care 122 mg/dl (70-99)
--- NOTE | 2025-03-10 16:11 | RESPNOTE ---
ETT withdrawn to 22cm at the teeth per SPREADING MACHINE OPERATOR.
[2025-03-10] MEDS: VENTOLIN NEBULES 2.5 MG INH (16:12)
[2025-03-10 16:49] LABS: B.E. -0.4 mmol/L; HCO3 24.8 mmol/L (21-28); O2 Saturation % 96.5 % (94-98); PCO2 42 mmHg (32-35); PO2 77 mmHg (83-108)
[2025-03-10 17:02] LABS: Hematocrit 36.2 % (37.0-47.0); Hemoglobin 12.2 g/dL (12.0-16.0); Platelet Count 191 10^3/uL (130-400)
[2025-03-10] MEDS: DILAUDID 0.5 MG IV ×2 (17:05→20:53)
--- NOTE | 2025-03-10 17:32 | PTCARENOTE ---
PT placed on Cpap @ 1620, extubated @ 1700 AAOx4 w/ complaints of pain
[2025-03-10 17:48] LABS: Glucose - Point of Care 137 mg/dl (70-99)
[2025-03-10 18:25] LABS: Glucose - Point of Care 125 mg/dl (70-99)
[2025-03-10] MEDS: OFIRMEV 100 IV (19:08)
[2025-03-10] MEDS: NEURONTIN PO ×2 (19:29)
--- NOTE | 2025-03-10 19:55 | W.PN.CARDCBS ---
Today's Communication / Plan
-
Doing well immediately postop
Appreciate efforts of CT surgical team
We will continue to follow
Impression / Plan
-
Impression:
Status post CABG 03/10/2025 (BOWER to LAD, SVG to RCA, SVG to OM1 SVG off vein uptnam to D2, LAAL)
Hypertension
Hyperlipidemia
Fibromyalgia
Plan:
Doing well immediately postop
Appreciate efforts of CT surgery
We will continue to follow along
Progress Note - Stucco Worker
Subjective
Date of Service: March 10, 2025:
Seen immediately postop, just extubated,
Only drip present still he is insulin
Patient sedated,
Is verbalizing, not yet fully awake
Objective
Labs:
03/10/25 16:40
03/10/25 14:01
Labs
Hgb 12.2 g/dL (12.0-16.0) 03/10/25 16:40
Hct 36.2 % (37.0-47.0) L 03/10/25 16:40
Plt Count 191 10^3/uL (130-400) 03/10/25 16:40
PT 17.3 Sec (11.4-14.6) H 03/10/25 14:01
INR 1.38 03/10/25 14:01
APTT 29.4 Sec (23.4-35.0) 03/10/25 14:01
Sodium 137 mmol/L (135-145) 03/05/25 08:28
Potassium 4.2 mmol/L (3.5-5.1) 03/05/25 08:28
BUN 17 mg/dl (7-17) 03/10/25 14:01
Creatinine 0.6 mg/dL (0.6-1.0) 03/10/25 14:01
Glucose 145 mg/dl (70-99) H 03/10/25 14:01
Vital Signs and I&O:
Vital Signs
Temp Pulse Resp BP Pulse Ox
36.7 C 81 16 101/62 94
03/10/25 19:00 03/10/25 19:00 03/10/25 19:00 03/10/25 19:00 03/10/25 19:00
Vital Signs
Temp Pulse Resp BP Pulse Ox
36.7 C 81 16 101/62 94
03/10/25 19:00 03/10/25 19:00 03/10/25 19:00 03/10/25 19:00 03/10/25 19:00
Intake & Output
03/08/25 03/09/25 03/10/25 03/11/25
07:59 06:59 07:59 07:59
Intake Total 310 / 310
Output Total 890 / 890
Balance -580 / -580
Physical Exam
Physical Exam
Head and neck exam unremarkable, chest incision intact, right leg wrapped, lungs are clear, no murmurs no rubs, no edema
[2025-03-10] MEDS: CRESTOR 20 MG PO (20:04)
[2025-03-10] MEDS: SENOKOT 8.6 MG PO (20:04)
[2025-03-10] MEDS: LOW STRENGTH ASPIRIN 81 MG PO (20:05)
[2025-03-10] MEDS: ANCEF 5 IV (20:06)
[2025-03-10] MEDS: PACERONE PO (20:06)
[2025-03-10] MEDS: TYLENOL PO ×2 (20:07→22:40)
[2025-03-10 20:13] LABS: Glucose - Point of Care 126 mg/dl (70-99)
--- NOTE | 2025-03-10 20:27 | PTCARENOTE ---
Assumed care of patient 190, alert and oriented drowy. VSS, NSR rhythm on monitor; has epicardial v wire settings 30/10; DP and radial pulses present; Lungs diminished at bases; CTx4 to -20 cm wall suction draining bloody drainage - no air leak,
tidaling, or crepitus noted,+ BS, tolerating PO water, took oral medications without issue; Gurrola catheter in place draining clear, yellow urine; Sternal incision glued and CDI. groin puncture site glued, approximated CDI, L leg or arm wrapped in
BARON wrap - CDI; L radial A-line in place, slick present in RIJ Cordis all lines zeroed and leveled; PIVx1; Levo, insulin gtts infusing . - see nursing flowsheets for further details; see nursing documentation for further details.
[2025-03-10 20:51] LABS: B.E. 0.5 mmol/L; HCO3 25.4 mmol/L (21-28); O2 Saturation % 99.3 % (94-98); PCO2 41 mmHg (32-35); PO2 102 mmHg (83-108); Potassium 4.1 mMOL/L (3.5-5.1)
[2025-03-10] MEDS: FLEXERIL 5 MG PO (20:54)
[2025-03-10 21:52] LABS: Glucose - Point of Care 116 mg/dl (70-99)
[2025-03-10] MEDS: PACERONE 200 MG PO (21:56)
[2025-03-10] MEDS: NEURONTIN 100 MG PO (21:57)
[2025-03-10 22:54] LABS: Glucose - Point of Care 119 mg/dl (70-99)
--- NOTE | 2025-03-10 23:02 | PTCARENOTE ---
patient resting, follows commands, VSS, Levophed off, Insulin gtt per protocol, +pulses, 92 % on room air, has periods of apnea when asleep, CPAP order placed for overnight. Full bed bath completed with baby wash since allergy to CHG wipes. urine
output 50-60/hr.
[2025-03-10] MEDS: ROXICODONE 5 MG PO (23:20)
[2025-03-10 23:54] LABS: Glucose - Point of Care 99 mg/dl (70-99)
[2025-03-10] MEDS: CARDENE 200 IV (23:55)
[2025-03-11] VITALS (39 sets, daily range): BP systolic 88–140; BP diastolic 50–84; PULSE 90; O2SAT 90–94; BMI 35.6
[2025-03-11 00:59] LABS: Glucose - Point of Care 105 mg/dl (70-99)
[2025-03-11] MEDS: NITROGLYCERIN PREMIX 250 IV (01:30)
[2025-03-11 01:59] LABS: Glucose - Point of Care 130 mg/dl (70-99)
[2025-03-11] MEDS: ANCEF 5 IV ×2 (03:25→12:10)
[2025-03-11] MEDS: ROXICODONE 5 MG PO ×4 (03:25→19:31)
[2025-03-11 03:42] LABS: Hematocrit 33.8 % (37.0-47.0); Hemoglobin 11.7 g/dL (12.0-16.0); Mean Corp Hgb Conc. 34.6 g/dL (33.0-37.0); Mean Corpuscular Volume 84.7 fL (81.0-99.0); Platelet Count 224 10^3/uL (130-400); Red Cell Dist. Width 12.7 % (11.5-14.5)
[2025-03-11 03:56] LABS: B.E. 1.7 mmol/L; HCO3 26.6 mmol/L (21-28); O2 Saturation % 97.4 % (94-98); PCO2 42 mmHg (32-35); PO2 76 mmHg (83-108); Potassium 3.9 mMOL/L (3.5-5.1)
[2025-03-11 04:08] LABS: Blood Urea Nitrogen 23 mg/dl (7-17); Calcium 8.6 mg/dl (8.4-10.2); Carbon Dioxide 29 mmol/L (22-30); Chloride 106 mmol/L (98-107); Estimated Creatinine Clearance 87 ml/min; Glucose 116 mg/dl (70-99); Magnesium 2.5 mg/dl (1.6-2.3); Potassium 4.0 mmol/L (3.5-5.1); Sodium 138 mmol/L (135-145); eGFR > 60.00
--- NOTE | 2025-03-11 04:47 | PTCARENOTE ---
Patient on midflow NC 15 L, did not tolerated CPAP. still having periods of DARLENE, On Nitro gtt to maintain a sbp < 120. Labs drawn, patient remains anxious. Gurrola output 50 cc/hr. Mouth dry, using oral moisturizer. PRn pain medication given, NSR,
+pulses,
[2025-03-11] MEDS: TYLENOL 975 MG PO ×3 (05:55→21:16)
[2025-03-11 06:08] LABS: Glucose - Point of Care 110 mg/dl (70-99)
[2025-03-11] MEDS: LOPRESSOR 12.5 MG PO ×2 (06:32→19:31)
[2025-03-11] MEDS: NOVOLIN R INSULIN INFUSION 100 IV (07:10)
[2025-03-11] MEDS: BACTROBAN 2% OINTMENT 1 APPLIC NASAL ×2 (07:14→19:32)
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
--- NOTE | 2025-03-11 07:50 | W.PN.ANS.POP ---
Anesthesia Post Operative
- Anesthesia Post Op Note
Vital Signs Stable-See Nursing Note: Yes
Airway Patent: Yes (nasal cannula)
Adequate Pain Control: Yes
Change in Mental Status: No
Current Postoperative Nausea & Vomiting: No
Anesthesia Complications: No
General Anesthetic Recall: No
Unplanned Admission: No
Post Op Hydration Adequate: Yes
--- NOTE | 2025-03-11 08:00 | PTCARENOTE ---
pt received from previous RN, oriented, in bed. SR on the monitor, HR 80s. V wire in place, VVI 30/10. SBP 100-120s. Nitro gtt titrated off. CVP ~7. palpable pulses, trace LE edema, +1 UE edema. pt on 15L MF, 95-96% POX. lungs diminished, shallow
breathing. IS encouraged. CTx4, no air leak or crepitus noted. pt abdomen s/n, hypoactive BS. tolerating clears. Gurrola in place, clear yellow urine. sternal incision GRACIE, approximated. surgical bra in place. chest tube dressing c/d/i. R groin
puncture intact. RLE BARON bandage in place. RIJ cordis/slick maintained. L radial [place] flushed, zeroed, and calibrated. PIV. insulin gtt running as ordered. see worklist for VS, I&O, and assessment.
[2025-03-11 08:57] LABS: Glucose - Point of Care 117 mg/dl (70-99)
[2025-03-11] MEDS: NEURONTIN 100 MG PO ×3 (08:58→21:16)
[2025-03-11] MEDS: PLAVIX 75 MG PO (08:58)
[2025-03-11] MEDS: SENOKOT 8.6 MG PO ×2 (08:58→19:31)
[2025-03-11] MEDS: PROTONIX 40 MG PO (08:58)
[2025-03-11] MEDS: KCL 40 MEQ PO (08:59)
[2025-03-11] MEDS: PACERONE 200 MG PO ×3 (08:59→21:16)
[2025-03-11] MEDS: LIDOCAINE 4% PATCH 1 PATCH TOPICAL (09:00)
[2025-03-11] MEDS: MAGNESIUM OXIDE PO (09:00)
[2025-03-11] MEDS: LASIX 40 MG IV (09:00)
[2025-03-11] MEDS: LOW STRENGTH ASPIRIN 81 MG PO (09:00)
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
[2025-03-11 10:08] LABS: Glucose - Point of Care 108 mg/dl (70-99)
--- NOTE | 2025-03-11 10:42 | PTCARENOTE ---
L radial [place] dc'd as ordered, dressing c/d/i. RIJ slick dc'd, cordis remains in place. IVP Lasix and PO K given as ordered. R pleural and R med CT dc'd as ordered. L pleural and L med CT to one atrium per EXERCISE PHYSIOLOGY PROFESSOR. pt c/o incisional pain, received PRN
Roxicodone.
[2025-03-11] MEDS: NSS IV (12:03)
[2025-03-11] MEDS: TORADOL 15 MG IV ×2 (12:10→22:31)
[2025-03-11 12:20] LABS: Glucose - Point of Care 106 mg/dl (70-99)
--- NOTE | 2025-03-11 12:30 | PTCARENOTE ---
pt VSS, OOB to chair x2 assist, IS encouraged. pt c/o sternal pain, received PRN Toradol w/ slight decrease in pain.
--- NOTE | 2025-03-11 13:14 | W.PN.CARDCBS ---
Today's Communication / Plan
-
Usual postoperative care as you are
Impression / Plan
-
Impression:
Status post CABG 03/10/2025 (BOWER to LAD, SVG to RCA, SVG to OM1 SVG off vein putnam to D2, LAAL)
Hypertension
Hyperlipidemia
Fibromyalgia
Plan:
POD-1 Doing well awake alert and up in chair.
Doing well immediately postop
Appreciate efforts of CT surgery-lines and tubes out as you are
We will continue to follow along
Progress Note - Tracer Bullet Section Supervisor
Subjective
Date of Service: March 11, 2025
feels well
Objective
Labs:
03/11/25 03:30
03/11/25 03:30
Labs
Hgb 11.7 g/dL (12.0-16.0) L 03/11/25 03:30
Hct 33.8 % (37.0-47.0) L 03/11/25 03:30
Plt Count 224 10^3/uL (130-400) 03/11/25 03:30
PT 17.3 Sec (11.4-14.6) H 03/10/25 14:01
INR 1.38 03/10/25 14:01
APTT 29.4 Sec (23.4-35.0) 03/10/25 14:01
Sodium 138 mmol/L (135-145) 03/11/25 03:30
Potassium 4.0 mmol/L (3.5-5.1) 03/11/25 03:30
BUN 23 mg/dl (7-17) H 03/11/25 03:30
Creatinine 0.7 mg/dL (0.6-1.0) 03/11/25 03:30
Glucose 116 mg/dl (70-99) H 03/11/25 03:30
Vital Signs and I&O:
Vital Signs
Temp Pulse Resp BP Pulse Ox
97.3 F 87 21 113/55 91
03/11/25 08:00 03/11/25 12:15 03/11/25 12:15 03/11/25 12:13 03/11/25 12:15
Vital Signs
Temp Pulse Resp BP Pulse Ox
97.3 F 87 21 113/55 91
03/11/25 08:00 03/11/25 12:15 03/11/25 12:15 03/11/25 12:13 03/11/25 12:15
Intake & Output
03/09/25 03/10/25 03/11/25 03/12/25
05:59 06:59 06:59 06:59
Intake Total 1061.0 / 1203.5 218.5 / 218.5
Output Total 1710 / 1795 695 / 695
Balance -649.0 / -591.5 -476.5 / -476.5
Physical Exam
Physical Exam
����Physical Exam
���������������������General:��no apparent distress, not acutely ill
���������������������������Neck:��supple. no meningeal signs. normal psoterior pharynx
������������������������
���������������������������Heart:��s1/s2 regular rate and rhythm, no murmur. equal radial pulses.
Sternum clean dry and intact
��������������������������Lungs: ��no acute respiratory distress. clear bilaterally
����������������������Abdomen:�normal bowel sounds. not tender. no CVAT
��������������������������Neuro:��alert and oriented. no focal neurological deficits
������������������������������Skin: ��no rash
�����������������������Psychiatric:�well kept. interactive and cooperative
�����������������������Extremities:��no edema. no calf tenderness. negative homans. good distal pulses
��
�
[2025-03-11 14:21] LABS: Glucose - Point of Care 111 mg/dl (70-99)
[2025-03-11] MEDS: LEVOPHED 250 IV (15:11)
--- NOTE | 2025-03-11 16:00 | PTCARENOTE ---
Addendum entered by Soha Rivers RN 03/11/25 16:55:
BMP sent per FILM PRINTER
Original Note:
pt VSS, no changes in assessment. pt resting between care. FILM PRINTER aware of UO.
[2025-03-11 17:15] LABS: Blood Urea Nitrogen 31 mg/dl (7-17); Calcium 8.5 mg/dl (8.4-10.2); Carbon Dioxide 30 mmol/L (22-30); Chloride 101 mmol/L (98-107); Estimated Creatinine Clearance 78 ml/min; Glucose 121 mg/dl (70-99); Magnesium 2.4 mg/dl (1.6-2.3); Potassium 4.5 mmol/L (3.5-5.1); Sodium 131 mmol/L (135-145); eGFR > 60.00
[2025-03-11] MEDS: CRESTOR 20 MG PO (18:24)
[2025-03-11] MEDS: ALBUMIN 5% 250 IV (18:27)
[2025-03-11] MEDS: MAGNESIUM OXIDE 400 MG PO (19:31)
[2025-03-11] MEDS: REMOVE LIDOCAINE PATCH 1 PATCH REMOVE (19:32)
--- NOTE | 2025-03-11 20:45 | PTCARENOTE ---
Assumed care of pt from dayshift RN. Walking rounds completed. Pt AAOx3. Assisted from the chair to the bed w/ assist x2. SR on the tele monitor. HR 80s. BP stable. 100s/60s. B/L radial pulses palpable. +1 left pedal edema present. V-wire intact and
insulated. Pt on 7 L midflow. POX 92-95%. Deep breathing and IS encouraged. Lung sounds diminished in the bases. L pleural/L mediastinal CT to 1 atrium intact, no airleaks noted, and output as documented. Abdomen round. +BSx4. Gurrola catheter intact
and draining yellow urine. Tolerating meds w/ apple sauce. All surgical sites stable. Right IJ cordis and PIV intact. Pt repositioned as needed. See MAR for pain medication documentation. See worklist for full nursing assessment and interventions.
Call fisher within reach.
[2025-03-12] VITALS (25 sets, daily range): BP systolic 112–155; BP diastolic 55–91; PULSE 81; O2SAT 90–97; BMI 35.2
--- NOTE | 2025-03-12 01:18 | PTCARENOTE ---
No acute changes in assessment. SR on tele monitor. HR 70s. BP stable. 91-95% on 7L midflow NC. CTx2 assessment unchanged. Gurrola catheter intact and draining yellow urine. Pain medication as charted in JUL. All surgical sites stable. Call fisher
within reach.
[2025-03-12 04:25] LABS: Hematocrit 30.3 % (37.0-47.0); Hemoglobin 9.8 g/dL (12.0-16.0); Mean Corp Hgb Conc. 32.3 g/dL (33.0-37.0); Mean Corpuscular Volume 86.6 fL (81.0-99.0); Platelet Count 173 10^3/uL (130-400); Red Cell Dist. Width 13.2 % (11.5-14.5)
--- NOTE | 2025-03-12 04:25 | PTCARENOTE ---
No change in assessment. SR on the tele monitor. HR 70-80s. BP stable. Pt on 4 L midflow. POX 93%. CTx2 assessment unchanged. Output as documented. Gurrola catheter intact and draining yellow/monae urine. Order changed to critical I&Os. Pt
repositioned as needed. Labs sent. Call fisher within reach.
[2025-03-12 04:46] LABS: Blood Urea Nitrogen 37 mg/dl (7-17); Calcium 8.4 mg/dl (8.4-10.2); Carbon Dioxide 31 mmol/L (22-30); Chloride 102 mmol/L (98-107); Estimated Creatinine Clearance 89 ml/min; Glucose 127 mg/dl (70-99); Magnesium 2.6 mg/dl (1.6-2.3); Potassium 4.7 mmol/L (3.5-5.1); Sodium 132 mmol/L (135-145); eGFR > 60.00
[2025-03-12] MEDS: TYLENOL 975 MG PO ×3 (06:17→21:54)
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
--- NOTE | 2025-03-12 08:00 | PTCARENOTE ---
pt received from previous RN, oriented, OOB in chair. SR on the monitor, HR 80s. V wire insulated. SBP 120s. palpable pulses. trace/+1 LE edema. trace UE edema. 4LMF, 92-95% POX. lungs diminished, IS encouraged. CTx2, no air leak or crepitus noted.
pt abdomen round, s/n, denies n/v. +BS, +flatus per pt. diet tolerated. Gurrola in place, clear yellow urine. sternal incision ESL TUTOR, approximated. chest tube dressing c/d/i. R groin puncture intact. RLE incision GRACIE, approximated. RIJ cordis
maintained. PIV. see worklist for VS, I&O, and assessment.
[2025-03-12] MEDS: PROTONIX 40 MG PO (08:09)
[2025-03-12] MEDS: NEURONTIN 100 MG PO ×3 (08:09→21:54)
[2025-03-12] MEDS: PACERONE 200 MG PO ×3 (08:09→21:54)
[2025-03-12] MEDS: PLAVIX 75 MG PO (08:09)
[2025-03-12] MEDS: LOW STRENGTH ASPIRIN 81 MG PO (08:09)
[2025-03-12] MEDS: LOPRESSOR 12.5 MG PO ×2 (08:09→19:47)
[2025-03-12] MEDS: ROXICODONE 5 MG PO ×2 (08:09→12:11)
[2025-03-12] MEDS: SENOKOT 8.6 MG PO ×2 (08:09→19:47)
[2025-03-12] MEDS: BACTROBAN 2% OINTMENT 1 APPLIC NASAL ×2 (08:10→19:46)
[2025-03-12] MEDS: LIDOCAINE 4% PATCH 1 PATCH TOPICAL (08:10)
[2025-03-12] MEDS: MAGNESIUM OXIDE PO ×2 (08:10→20:01)
[2025-03-12] MEDS: LASIX 40 MG IV (08:10)
--- NOTE | 2025-03-12 12:30 | PTCARENOTE ---
pt VSS, no changes in assessment. pt ambulated in hallway w/ CR. pt OOB in chair for lunch. lizzeth phelan'd, pt voiding on BSC. Roxicodone 5mg PO given for pain as ordered.
--- NOTE | 2025-03-12 12:43 | CM ---
Reviewed chart. Met [facility] Mrs. Santana to review discharge plans. She states she is feeling tired. Prior to admission she resides with her spouse in a two story home with three steps to enter. Prior to admission she was independent with ambulation
and adls. She does not have any DME in the home. She has a prescription plan. Medical work-up in progress. The discharge plan is to retrun home with her spouse and a home visit by the Transitional Care Nurse when medically stable.
--- NOTE | 2025-03-12 15:21 | W.PN.CARDCBS ---
Addendum entered and electronically signed by Alexander Rice DO 03/12/25 15:59:
I saw and examined the patient.
The Field Account Director's note was reviewed and I agree with the note.
Comment:
Plan:
Hx: Status post CABG 03/10/2025 (BOWER to LAD, SVG to RCA, SVG to OM1 SVG off vein putnam to D2, LAAL)
Cont post op care
Remains sinus
Wean O2 as able
Cont DAPT
Cont Diuresis
Prior to admission was on Norvasc 2.5 mg daily, Lasix 20 mg daily, losartan 100 mg daily, Nebivolol 20 mg every afternoon
Original Note:
Today's Communication / Plan
-
Continue postoperative care
In sinus rhythm
Wean supplemental O2 as able
Impression / Plan
-
Impression:
Status post CABG 03/10/2025 (BOWER to LAD, SVG to RCA, SVG to OM1 SVG off vein putnam to D2, LAAL)
Hypertension
Hyperlipidemia
Fibromyalgia
Plan:
-Status post CABG 03/10/2025 (BOWER to LAD, SVG to RCA, SVG to OM1 SVG off vein putnam to D2, LAAL)
-in SR on review of tele
-1 CT being removed today. Continue to wean supplemental O2, currently on 3 L
-hgb 9.8 continue asa, plavix
-diurese
-continue post op care, OOB/IS as able
-Prior to admission was on Norvasc 2.5 mg daily, Lasix 20 mg daily, losartan 100 mg daily, Nebivolol 20 mg every afternoon
-d/w nursing
Progress Note - Animal Biologist
Subjective
Date of Service: March 12, 2025
No present issues
Objective
Labs:
03/12/25 03:45
03/12/25 03:45
Labs
Hgb 9.8 g/dL (12.0-16.0) L 03/12/25 03:45
Hct 30.3 % (37.0-47.0) L 03/12/25 03:45
Plt Count 173 10^3/uL (130-400) D 03/12/25 03:45
PT 17.3 Sec (11.4-14.6) H 03/10/25 14:01
INR 1.38 03/10/25 14:01
APTT 29.4 Sec (23.4-35.0) 03/10/25 14:01
Sodium 132 mmol/L (135-145) L 03/12/25 03:45
Potassium 4.7 mmol/L (3.5-5.1) 03/12/25 03:45
BUN 37 mg/dl (7-17) H 03/12/25 03:45
Creatinine 0.7 mg/dL (0.6-1.0) 03/12/25 03:45
Glucose 127 mg/dl (70-99) H 03/12/25 03:45
Vital Signs and I&O:
Vital Signs
Temp Pulse Resp BP Pulse Ox
97.7 F 86 18 146/61 94
03/12/25 12:00 03/12/25 15:00 03/12/25 12:00 03/12/25 14:45 03/12/25 14:45
Vital Signs
Temp Pulse Resp BP Pulse Ox
97.7 F 86 18 146/61 94
03/12/25 12:00 03/12/25 15:00 03/12/25 12:00 03/12/25 14:45 03/12/25 14:45
Intake & Output
03/10/25 03/11/25 03/12/25 03/13/25
07:59 07:59 07:59 07:59
Intake Total 1203.5 / 1230.0 692.0 / 702.0 60 / 60
Output Total 1795 / 1840 1360 / 1390 530 / 530
Balance -591.5 / -610.0 -668.0 / -688.0 -470 / -470
Physical Exam
Physical Exam
GEN: No distress, awake, alert, oriented x3. On supplemental O2
HEENT: supple, mmm
LUNGS: CTA anterolaterally, no wheezes/rales
CV: Reg, S1/S2, no murmur
ABD: soft, BS+, NT/ND
EXT: No cyanosis, clubbing.trace edema of bilateral lower extremity
NEURO: Gross non-focal
SKIN: Warm, pink, dry. No rash. Sternotomy incision clean dry and intact. [address]
--- NOTE | 2025-03-12 15:30 | PTCARENOTE ---
pt placed back to bed, V wire pulled by BUSINESS SERVICES DIRECTOR Marge, q15min VS completed x1hr. L med CT dc'd as ordered, L pleural CT remains to suction as ordered, dressing c/d/i. pt OOB to chair w/ assist. BUSINESS SERVICES DIRECTOR aware of UO, PVR 67ml, BUSINESS SERVICES DIRECTOR aware.
[2025-03-12] MEDS: NSS 500 IV (15:38)
[2025-03-12] MEDS: CRESTOR 20 MG PO (17:58)
--- NOTE | 2025-03-12 18:27 | PTCARENOTE ---
pt OOB in chair, ambulated in hallway on 3LNC w/ stand by assist.
[2025-03-12] MEDS: ROXICODONE PO (19:47)
[2025-03-12] MEDS: REMOVE LIDOCAINE PATCH 1 PATCH REMOVE (19:47)
[2025-03-12] MEDS: ROXICODONE 2.5 MG PO (19:50)
--- NOTE | 2025-03-12 20:30 | PTCARENOTE ---
Assumed care of pt from chester SOUZA. AAOx3. SR on the tele monitor. HR 80s. BP stable. B/L radial pulses palpable. B/L DP pulses weak on palpation. Trace generalized edema and +1 L pedal edema present. Pt on 3 L NC. POX 92-97%. L pleural CT to -20
suction, no airleak noted, and output as documented. Deep breathing and IS encouraged. Abdomen round. +BSx4. Pt reports passing gas. Meds tolerated w/ apple sauce. Voiding on commode - small amounts at a time. All surgical sites stable. Right IJ
cordis and PIVx1 intact. Pain meds as documented in JUL. See worklist for full nursing assessment and interventions. Pt assisted from chair to bed w/ assist x2. Call fisher within reach.
[2025-03-13] VITALS (12 sets, daily range): BP systolic 115–148; BP diastolic 61–80; PULSE 80; O2SAT 94–97; BMI 35.2
--- NOTE | 2025-03-13 00:14 | PTCARENOTE ---
No acute change in assessment. Pt SR on the tele monitor. HR 70-80s. BP stable. 92-96% on RA. Left pleural CT assessment unchanged, minimal output. All surgical sites stable. No c/o pain at this time. Call fisher within reach.
--- NOTE | 2025-03-13 04:59 | PTCARENOTE ---
No acute changes in assessment. Pt is SR on the tele monitor. HR 70s. BP stable. 95% on [address] NC[address] L [address] intact, minimal output. Labs sent. OOB to void in the commode x 2. Pt denies pain at this time. Call fisher within reach.
[2025-03-13 05:16] LABS: Hematocrit 30.1 % (37.0-47.0); Hemoglobin 9.7 g/dL (12.0-16.0); Mean Corp Hgb Conc. 32.2 g/dL (33.0-37.0); Mean Corpuscular Volume 90.4 fL (81.0-99.0); Platelet Count 173 10^3/uL (130-400); Red Cell Dist. Width 13.0 % (11.5-14.5)
[2025-03-13 05:39] LABS: Blood Urea Nitrogen 32 mg/dl (7-17); Calcium 8.5 mg/dl (8.4-10.2); Carbon Dioxide 31 mmol/L (22-30); Chloride 100 mmol/L (98-107); Estimated Creatinine Clearance 103 ml/min; Glucose 114 mg/dl (70-99); Magnesium 2.3 mg/dl (1.6-2.3); Potassium 4.3 mmol/L (3.5-5.1); Sodium 135 mmol/L (135-145); eGFR > 60.00
[2025-03-13] MEDS: TYLENOL 975 MG PO ×3 (06:25→22:50)
[2025-03-13] MEDS: PLAVIX 75 MG PO (08:19)
[2025-03-13] MEDS: SENOKOT 8.6 MG PO ×2 (08:19→20:12)
[2025-03-13] MEDS: LIDOCAINE 4% PATCH 1 PATCH TOPICAL (08:19)
[2025-03-13] MEDS: LOW STRENGTH ASPIRIN 81 MG PO (08:19)
[2025-03-13] MEDS: PROTONIX 40 MG PO (08:19)
[2025-03-13] MEDS: NORVASC 2.5 MG PO (08:20)
[2025-03-13] MEDS: PACERONE 200 MG PO ×3 (08:20→22:49)
[2025-03-13] MEDS: NEURONTIN 100 MG PO ×3 (08:20→22:50)
[2025-03-13] MEDS: LOPRESSOR 12.5 MG PO ×2 (08:20→20:11)
[2025-03-13] MEDS: MAGNESIUM OXIDE 400 MG PO ×2 (08:21→20:12)
[2025-03-13] MEDS: BACTROBAN 2% OINTMENT 1 APPLIC NASAL ×2 (08:22→20:11)
--- NOTE | 2025-03-13 08:41 | PTCARENOTE ---
Rec'd pt this shift awake and alert sitting in chair. Pt denies pain,denies sob. AM meds given. Encouraged coughing and deep breathing and use of IS. See worklist for VS/I and O and assessments.
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
[2025-03-13] MEDS: ANESTHETIC LOZENGE 1 LOZENGE PO ×2 (09:08→18:16)
[2025-03-13] MEDS: ROXICODONE 5 MG PO ×2 (09:40→22:51)
--- NOTE | 2025-03-13 09:53 | PTCARENOTE ---
Pt ambulated with cardiac rehab with oxygen and rolling walker. Pt tolerated well,but very MAYER. Pt c/o back pain post ambulation. Pain medicine given as ordered.
[2025-03-13] MEDS: NSS IV (10:59)
--- NOTE | 2025-03-13 12:41 | CM ---
Reviewed chart. Met with Mrs. Santana and her son to review discharge plans. She states she is feeling better. She states she resides with her spouse in a two story home with three steps to enter. She states she has a full flight of steps to get
to bedroom/full bathroom. She states she has a powder room on the first floor. She states she is planning on staying on the first floor when she first gets home. She states she can sleep in a recliner. She states her daughter will be coming in from ""[place] to stay with her a week to assist in her care. She states prior to admission she was independent with ambulation and adls. She states when her foot is bothering her so does uses a walker. She states she has a walker and bedside commode at
[facility] that she is nit currently using. She states she has a prescription plan. We reviewed a home visit by the Transitional Care Nurse. She is agreeable to a home visit. Medical work-up in progress. The discharge plan is to return home with her
spouse, daughter staying a week and a home visit by the Transitional Care Nurse when medically stable.
--- NOTE | 2025-03-13 17:23 | PTCARENOTE ---
Attempted to wean off oxygen, pulse ox 90% on 1l n/c oxygen. Pulse ox 91-94% on 2l n/c oxygen. Encouraged coughing and deep breathing and use of IS.
[2025-03-13] MEDS: CRESTOR 20 MG PO (18:14)
--- NOTE | 2025-03-13 18:42 | W.PN.CARDCBS ---
Today's Communication / Plan
-
Continue postop care
Impression / Plan
-
Impression:
Status post CABG 03/10/2025 (BOWER to LAD, SVG to RCA, SVG to OM1 SVG off vein putnam to D2, LAAL)
Hypertension
Hyperlipidemia
Fibromyalgia
Plan:
-Status post CABG 03/10/2025 (BOWER to LAD, SVG to RCA, SVG to OM1 SVG off vein putnam to D2, LAAL)
-Cont ASA/plavix/high intensity statin/BB
-Maintaining sinus rhythm on review of telemetry
-Cont PO amiodarone
-Appears euvolemic on exam however volume exam is challenging due to body habitus
-Still requiring supplemental O2
-Agree with IV diuresis to improve respiratory status
-Continue post op care, OOB/IS as able
-Prior to admission Norvasc 2.5 mg daily resumed. Was also on Lasix 20 mg daily, losartan 100 mg daily, Nebivolol 20 mg every afternoon which are held.
Progress Note - Resident Services Manager
Subjective
Date of Service: March 13, 2025
No acute overnight events. Patient is resting comfortably in bed. No cardiac complaints. Main issue is back pain which seems to be chronic.
Objective
Labs:
03/13/25 04:35
03/13/25 04:35
Labs
Hgb 9.7 g/dL (12.0-16.0) L 03/13/25 04:35
Hct 30.1 % (37.0-47.0) L 03/13/25 04:35
Plt Count 173 10^3/uL (130-400) 03/13/25 04:35
PT 17.3 Sec (11.4-14.6) H 03/10/25 14:01
INR 1.38 03/10/25 14:01
APTT 29.4 Sec (23.4-35.0) 03/10/25 14:01
Sodium 135 mmol/L (135-145) 03/13/25 04:35
Potassium 4.3 mmol/L (3.5-5.1) 03/13/25 04:35
BUN 32 mg/dl (7-17) H 03/13/25 04:35
Creatinine 0.6 mg/dL (0.6-1.0) 03/13/25 04:35
Glucose 114 mg/dl (70-99) H 03/13/25 04:35
Vital Signs and I&O:
Vital Signs
Temp Pulse Resp BP Pulse Ox
98.5 F 79 18 137/62 91
03/13/25 16:05 03/13/25 17:00 03/13/25 16:05 03/13/25 16:09 03/13/25 16:05
Vital Signs
Temp Pulse Resp BP Pulse Ox
98.5 F 79 18 137/62 91
03/13/25 16:05 03/13/25 17:00 03/13/25 16:05 03/13/25 16:09 03/13/25 16:05
Intake & Output
03/11/25 03/12/25 03/13/25 03/14/25
06:59 06:59 06:59 06:59
Intake Total 1061.0 / 1203.5 824.5 / 834.5 160 / 160 2280 / 2280
Output Total 1710 / 1795 1445 / 1445 920 / 920 690 / 690
Balance -649.0 / -591.5 -620.5 / -610.5 -760 / -760 1590 / 1590
Physical Exam
Physical Exam
Gen: NAD, AAOx3
HEENT: NC/AT, sclera anicteric
CV: RRR, NL s1/s2, no M/R/G
Lungs: Decreased breath sounds at the bases bilaterally on 2 L via nasal cannula
Abd: S/ND
Ext: Non pitting LE edema
Skin: Warm, dry
Neuro: Non-focal
[2025-03-13] MEDS: REMOVE LIDOCAINE PATCH 1 PATCH REMOVE (20:12)
--- NOTE | 2025-03-13 20:30 | PTCARENOTE ---
Patient received OOB in chair. Family initially at bedside. Patient A+A+Ox3. No neurological deficits noted. Patient assisted with minimal assistance to bathroom. Sternal Precautions. Voided 200 ml yellow urine. Washed face and brushed teeth.
Patient to bed. Slow, steady gait. Mild MAYER. O2 at 2L via NC. SaO2 93%. Sinus Rhythm. Heart rate 70-80's. Blood pressure 146/76 (96). Patient with no c/o chest pain, pressure or discomfort. Abdomen soft, nontender. Normoactive bowel
sounds. No BM. No c/o nausea. Lower extremity edema. Positive, palpable pulses. Sternal incision intact - Surgical adhesive - Open to air. Surgical bra. Chest tube dressing intact. Right groin puncture site intact. Right lower extremity
incision intact. Assessment as documented.
[2025-03-14] VITALS (9 sets, daily range): BP systolic 119–167; BP diastolic 63–85; PULSE 81; O2SAT 95–98; BMI 35.1
--- NOTE | 2025-03-14 | PTCARENOTE ---
Patient sleeping without difficulty. Assessment/Interventions as documented.
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
[2025-03-14] MEDS: TYLENOL 975 MG PO ×3 (04:43→21:18)
[2025-03-14] MEDS: ANESTHETIC LOZENGE 1 LOZENGE PO (04:43)
--- NOTE | 2025-03-14 04:45 | PTCARENOTE ---
Patient A+A+Ox3. No neurological deficits noted. AM lab work collected and sent. Patient assisted to bathroom. Minimal assistance. Sternal Precautions. Patient voided 300 ml yellow urine. Patient washed face and brushed teeth. Standing scale
weight 98.7 kg. Patient now in recliner chair. Post Void Residual 302 ml. Patient resting in chair. Assessment/Interventions as documented.
[2025-03-14 04:48] LABS: Hematocrit 28.4 % (37.0-47.0); Hemoglobin 9.6 g/dL (12.0-16.0); Mean Corp Hgb Conc. 33.8 g/dL (33.0-37.0); Mean Corpuscular Volume 86.6 fL (81.0-99.0); Platelet Count 229 10^3/uL (130-400); Red Cell Dist. Width 12.7 % (11.5-14.5)
[2025-03-14 04:56] LABS: Blood Urea Nitrogen 23 mg/dl (7-17); Calcium 8.7 mg/dl (8.4-10.2); Carbon Dioxide 32 mmol/L (22-30); Chloride 100 mmol/L (98-107); Estimated Creatinine Clearance 103 ml/min; Glucose 113 mg/dl (70-99); Magnesium 2.2 mg/dl (1.6-2.3); Potassium 4.2 mmol/L (3.5-5.1); Sodium 134 mmol/L (135-145); eGFR > 60.00
[2025-03-14] MEDS: BACTROBAN 2% OINTMENT 1 APPLIC NASAL (08:07)
[2025-03-14] MEDS: LOW STRENGTH ASPIRIN 81 MG PO (08:08)
[2025-03-14] MEDS: PACERONE 200 MG PO ×3 (08:08→21:18)
[2025-03-14] MEDS: PLAVIX 75 MG PO (08:08)
[2025-03-14] MEDS: SENOKOT 8.6 MG PO ×2 (08:08→19:38)
[2025-03-14] MEDS: LOPRESSOR 12.5 MG PO ×2 (08:08→19:38)
[2025-03-14] MEDS: PROTONIX 40 MG PO (08:08)
[2025-03-14] MEDS: NEURONTIN 100 MG PO ×3 (08:08→21:17)
[2025-03-14] MEDS: MAGNESIUM OXIDE 400 MG PO ×2 (08:08→19:38)
[2025-03-14] MEDS: NORVASC 2.5 MG PO (08:08)
[2025-03-14] MEDS: NSS IV (08:22)
--- NOTE | 2025-03-14 08:25 | PTCARENOTE ---
received pt from previous rn. Pt AAOx4, VSS. NSR per tele monitor HR 70s. Trace edema to b/l LE. +pulses. lungs diminished at bases. pox 92% on RA. non-productive cough noted. IS 750-1000. +bs. pt voiding in bathroom spontaneously. all surgical
sites intact. CT dressing c/d/i. PIV intact. plan of care discussed and questions encouraged. call fisher within reach. see worklist for full nursing assessment, I&Os, and nursing interventions.
--- NOTE | 2025-03-14 12:00 | PTCARENOTE ---
resumed care of pt from previous rn. AAOx3. VSS. NSR HR 70s. trace edema to R leg +pulses. pox 89-92% on RA. diminished lung sounds. IS encouraged. non-productive cough noted. +bs. no BM yet but passing gas. BRP, monae urine. all surgical sites
intact. PIV intact. will continue to monitor.
[2025-03-14] MEDS: BENADRYL 50 MG PO (15:28)
--- NOTE | 2025-03-14 15:46 | CM ---
Reviewed chart. Met with Mrs. Santana and her daughter to review discharge plans. She states she is feeling better and maybe able to go home soon. We reviewed a home visit by the Transitional Care Nurse. She is agreeable to a home visit. She
resides with her spouse in a two story home with three steps to enter. She has a full flight of steps to get to bedroom/full bathroom. She has a powder room on the first floor. She is planning on staying on the first floor when she first gets home.
She can sleep in a recliner. Her daughter will be coming in from [place] to stay with her a week to assist in her care. Prior to admission she was independent with ambulation and adls. When her foot is bothering her so does uses a walker. She
has a walker and bedside commode at home that she is not currently using. She has a prescription plan. Medical work-up in progress. The discharge plan is to return home with her spouse, daughter staying a week and a home visit by the Transitional
Care Nurse when medically stable.
--- NOTE | 2025-03-14 16:43 | W.PN.CARDCBS ---
Today's Communication / Plan
-
Continue postop care
OOB, IS
Tele while admitted; maintains SR
Impression / Plan
-
Impression:
Status post CABG 03/10/2025 (BOWER to LAD, SVG to RCA, SVG to OM1 SVG off vein putnam to D2, LAAL)
Hypertension
Hyperlipidemia
Fibromyalgia
Obesity
Plan:
-Status post CABG 03/10/2025 (BOWER to LAD, SVG to RCA, SVG to OM1 SVG off vein putnam to D2, LAAL)
-Cont ASA/plavix/high intensity statin/BB
-Maintaining sinus rhythm on review of telemetry
-Cont PO amiodarone
-Reported facial redness earlier resolved with benadryl; no recent medication changes
-Appears euvolemic on exam however volume exam is challenging due to body habitus
-Still requiring supplemental O2
-Agree with IV diuresis to improve respiratory status
-Continue post op care, OOB/IS as able
-Prior to admission Norvasc 2.5 mg daily resumed. Was also on Lasix 20 mg daily, losartan 100 mg daily, Nebivolol 20 mg every afternoon which are held.
Progress Note - Shoulder Pad Molder
Subjective
Date of Service: March 14, 2025
Patient seen and examined. No acute events overnight. Patient resting comfortably in bed. Patient reporting mild incisional discomfort. Noted facial redness earlier with respiratory or throat changes. Resolved with benadryl. Patient resting in chair
now without issue.
Objective
Labs:
03/14/25 04:05
03/14/25 04:05
Labs
Hgb 9.6 g/dL (12.0-16.0) L 03/14/25 04:05
Hct 28.4 % (37.0-47.0) L 03/14/25 04:05
Plt Count 229 10^3/uL (130-400) D 03/14/25 04:05
PT 17.3 Sec (11.4-14.6) H 03/10/25 14:01
INR 1.38 03/10/25 14:01
APTT 29.4 Sec (23.4-35.0) 03/10/25 14:01
Sodium 134 mmol/L (135-145) L 03/14/25 04:05
Potassium 4.2 mmol/L (3.5-5.1) 03/14/25 04:05
BUN 23 mg/dl (7-17) H 03/14/25 04:05
Creatinine 0.6 mg/dL (0.6-1.0) 03/14/25 04:05
Glucose 113 mg/dl (70-99) H 03/14/25 04:05
Vital Signs and I&O:
Vital Signs
Temp Pulse Resp BP Pulse Ox
98.9 F 83 18 167/63 90
03/14/25 12:00 03/14/25 14:35 03/14/25 08:00 03/14/25 14:35 03/14/25 14:35
Vital Signs
Temp Pulse Resp BP Pulse Ox
98.9 F 83 18 167/63 90
03/14/25 12:00 03/14/25 14:35 03/14/25 08:00 03/14/25 14:35 03/14/25 14:35
Intake & Output
03/12/25 03/13/25 03/14/25 03/15/25
06:59 06:59 06:59 06:59
Intake Total 824.5 / 834.5 160 / 160 2520 / 2520
Output Total 1445 / 1445 920 / 920 1190 / 1190 500 / 500
Balance -620.5 / -610.5 -760 / -760 1330 / 1330 -500 / -500
Physical Exam
Physical Exam
Gen: NAD, AAOx3
HEENT: NC/AT, sclera anicteric
CV: RRR, NL s1/s2, no M/R/G
Lungs: Decreased breath sounds at the bases bilaterally on 2 L via nasal cannula
Abd: S/ND
Ext: LLE no edema, RLE trace edema
Skin: Warm, dry
Neuro: Non-focal
[2025-03-14] MEDS: CRESTOR 20 MG PO (16:59)
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
--- NOTE | 2025-03-14 19:01 | PTCARENOTE ---
~[id number]: Received report from [facility], patient brought to new room and settled sitting OOB in chair. Pt AOx4, NSR 80s on tele, RA. Pt c/o 2/10 incisional pain, but does not want anything for it at this time. All needs met, call fisher within reach.
Handoff report given to nightshift RN.
[2025-03-14] MEDS: REMOVE LIDOCAINE PATCH REMOVE (19:40)
[2025-03-14 22:11] LABS: Glucose - Point of Care 135 mg/dl (70-99)
--- NOTE | 2025-03-14 23:24 | PTCARENOTE ---
Pt rec'd at change of shift awake,alert oob in recliner chair. Sinus on telemetry. few crackles noted in bases with sat 93% on R/A. ambulatory in room with sternal precautions followed. Abd large + BS, pt reports passing flatus but npo bm since
03/10. Senokot given
[2025-03-15 02:22] VITALS: BMI 34.9
[2025-03-15 02:37] VITALS: BP 156/70
--- NOTE | 2025-03-15 02:43 | PTCARENOTE ---
Pt oob to void. wt obtained. Pt c/o surgical bra cutting into her sides. bra loosened up and 4x4 placed at irritated site.
[2025-03-15] MEDS: TYLENOL 975 MG PO (05:48)
[2025-03-15 07:16] VITALS: BP 152/78
[2025-03-15 08:20] LABS: Glucose - Point of Care 118 mg/dl (70-99)
[2025-03-15] MEDS: PROTONIX 40 MG PO (09:01)
[2025-03-15] MEDS: PACERONE 200 MG PO (09:01)
[2025-03-15] MEDS: NEURONTIN 100 MG PO (09:02)
[2025-03-15] MEDS: SENOKOT 8.6 MG PO (09:02)
[2025-03-15] MEDS: NORVASC 2.5 MG PO (09:02)
[2025-03-15] MEDS: MAGNESIUM OXIDE 400 MG PO (09:02)
[2025-03-15] MEDS: LOW STRENGTH ASPIRIN 81 MG PO (09:02)
[2025-03-15] MEDS: LOPRESSOR 12.5 MG PO (09:02)
[2025-03-15] MEDS: PLAVIX 75 MG PO (09:03)
[2025-03-15] MEDS: ANESTHETIC LOZENGE 1 LOZENGE PO (09:06)
[2025-03-15] MEDS: NSS IV (09:09)
[2025-03-15 11:58] VITALS: BP 140/73
[2025-03-15 12:04] LABS: Glucose - Point of Care 124 mg/dl (70-99)
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
--- NOTE | 2025-03-15 15:30 | PTCARENOTE ---
Pt discharged to home with her daughter and . Discharge instructions given and reviewed with pt and her daughter with verbalization of good understanding and all questions answered. Pt showered prior to discharge without any issues.
[2025-03-15] MEDS: TYLENOL PO (15:50)
== END 2025-03-15 15:30 | disposition home or self-care (01) | DRG 235 ==
LOC: IVU 04:48
PROVIDERS: Anesthesiology; Clinical Nurse Specialist Acute Care; Physician Assistant Medical; ADMITTING PHYSICIAN Student in an Organized Health Care Education/Training Program; CONSULT PHYSICIAN Internal Medicine Cardiovascular Disease; CONSULT PHYSICIAN Internal Medicine Critical Care Medicine; FAMILY PHYSICIAN Internal Medicine
PROC: 021209W Bypass Coronary Artery, Three Arteries from Aorta with Autologous Venous Tissue, Open Approach (ICD-10-PCS; 2025-03-10)
PROC: 02100Z9 Bypass Coronary Artery, One Artery from Left Internal Mammary, Open Approach (ICD-10-PCS; 2025-03-10)
PROC: 5A1221Z Performance of Cardiac Output, Continuous (ICD-10-PCS; 2025-03-10)
PROC: 02L70CK Occlusion of Left Atrial Appendage with Extraluminal Device, Open Approach (ICD-10-PCS; 2025-03-10)
PROC: 06BP4ZZ Excision of Right Saphenous Vein, Percutaneous Endoscopic Approach (ICD-10-PCS; 2025-03-10)
PROC: B24BZZ4 Ultrasonography of Heart with Aorta, Transesophageal (ICD-10-PCS; 2025-03-10)
DX: I25.10 Atherosclerotic heart disease of native coronary artery without angina pectoris (principal); J95.2 Acute pulmonary insufficiency following nonthoracic surgery; D62 Acute posthemorrhagic anemia; I30.8 Other forms of acute pericarditis; E87.1 Hypo-osmolality and hyponatremia; J98.11 Atelectasis; I10 Essential (primary) hypertension; M79.7 Fibromyalgia; E66.812 Obesity, class 2; R73.9 Hyperglycemia, unspecified; E86.1 Hypovolemia; E87.70 Fluid overload, unspecified; G47.33 Obstructive sleep apnea (adult) (pediatric); Y83.8 Other surgical procedures as the cause of abnormal reaction of the patient, or of later complication, without mention of misadventure at the time of the procedure; M19.90 Unspecified osteoarthritis, unspecified site; Z68.35 Body mass index [BMI] 35.0-35.9, adult; Z79.82 Long term (current) use of aspirin
CPT/HCPCS: 36415; 71045; 71046; 80048; 80053; 81003; 81015; 82248; 82330; 82565; 82805; 82810; 82947; 82962; 83036; 83735; 84132; 84302; 84520; 85014; 85018; 85025; 85027; 85049; 85610; 85730; 86850; 86900; 86901; 86920; 87070; 87086; 93005; 93312; 93320; 93325; 93880; 93970; 94002; 94640; 94660; P9045

== ENCOUNTER 2025-04-22 10:26 | Outpatient (RCR) | payer MEDICARE, OTHER, SELFPAY | END 2025-04-22 23:59 | disposition home or self-care (01) | LOC: CRHB 10:26 | PROVIDERS: ATTENDING PHYSICIAN Internal Medicine Cardiovascular Disease; FAMILY PHYSICIAN Internal Medicine | DX: Z95.1 Presence of aortocoronary bypass graft (principal) | CPT/HCPCS: G0422; G0423 ==